=== PATIENT | male | born 1970 | race Two or more races ===

== ENCOUNTER 2024-03-28 11:43 | Emergency (ER) | payer MEDICAID, OTHER ==
[~2024-03-28] VITALS: Ht 180.3 cm; Wt 104.3 kg
[2024-03-28 12:27] VITALS: RESP 14
[2024-03-28 14:27] VITALS: TEMP 98.1
[2024-03-28] MEDS ORDERED: TRAM100T32 PO (17:21)
[2024-03-28] MEDS ORDERED: IBUP100S11 GT (17:23)
[2024-03-28 17:48] VITALS: BP 135/85; PULSE 74; O2SAT 99
== END 2024-03-28 19:18 | disposition home or self-care (01) ==
LOC: ER 11:43
DX: S93.492A Sprain of other ligament of left ankle, initial encounter (principal); X58.XXXA Exposure to other specified factors, initial encounter; Y93.89 Activity, other specified; Y92.89 Other specified places as the place of occurrence of the external cause; Y99.8 Other external cause status
CPT/HCPCS: 73610; 73630